=== PATIENT | male | born 1970 | race Caucasian/White ===

== ENCOUNTER 2018-06-23 04:37 | Emergency (ER) | payer OTHER | END 2018-06-23 05:23 | disposition other institution (70) | LOC: ED 04:37 | DX: Z02.89 Encounter for other administrative examinations (principal) ==

== ENCOUNTER 2018-06-23 04:37 | Emergency (ER) | payer MEDICAID ==
[~2018-06-23] VITALS: Ht 170.2 cm; Wt 77.1 kg
[2018-06-23 04:42] VITALS: Ht 170.2 cm; Wt 77.1 kg
[2018-06-23 05:23] VITALS: BP 139/95
== END 2018-06-23 05:23 | disposition other institution (70) ==
LOC: ED 04:37
DX: Z02.89 Encounter for other administrative examinations (principal)